=== PATIENT | male | born 1970 | race Caucasian/White ===

== ENCOUNTER 2020-02-07 08:53 | Outpatient (REF) | payer BC, SELFPAY | END 2020-02-07 08:54 | disposition home or self-care (01) | LOC: HO.WFDLDS 08:53 | PROVIDERS: Visit Provider Internal Medicine | DX: Z20.828 Contact with and (suspected) exposure to other viral communicable diseases (principal) | CPT/HCPCS: 87635 ==

== ENCOUNTER 2025-03-16 08:53 | Outpatient (REF) | payer BC, SELFPAY ==
--- OUTSIDE RECORDS SUMMARY | 2025-03-11 23:59 | XMS_ITS | Continuity of Care Document ---
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 Name Role Phone Cristobal hZong MD Primary Care Physician [phone] [place] [facility] [place]): [place]04[place]25 - 03/11/25 [facility] [address] [place] [address] Drive [address] [place], [place] [address] Attending Physician: Melo Ann MD Referring Physician: Kevon Holly Encounter Type: Office Visit Allergies, Adverse Reactions, Alerts No Known Allergies Functional Status Functional Status Assessment Assessment Assessment Component Result Effecti ve Date Disability status [CUBS] I'm Thriving - no identified disability 03/04/25 Do you have serious difficulty walking or climbing stairs No 03/04/25 Because of a physica l, mental, or emotional condition, do you have serious difficulty concentrating, remembering, or making decisions No 03/04/25 Are you blind, or do you have serious difficulty seeing, even when wearing glasses No 03/04/25 Difficulty Reading O r Writing No 03/04/25 Are you deaf, or do you have serious difficulty hearing No 03/04/25 Difficulty communica ting in usual language No 03/04/25 Because of a physica l, mental, or emotional condition, do you have difficulty doing errands alone such as visiting a physician's office or shopping No 03/04/25 Do you need any carina tional assistance or accommodations during your visit No 03/04/25 Do you have difficul ty dressing or bathing No 03/04/25 Medications atorvastatin 40 mg oral tablet 0 Refills, Maintenance, 03/04/25 8:48:00 AM EST, Partial fill upon patient request if the prescription is for a schedule II opioid drug. Start Date: 03/04/25 Status: Ordered Medication Dispense Status: Completed Total Allowed Fills: 1 Fills Dispensed: 0 Cimzia Prefilled Syringe 200 mg/mL subcutaneous kit 0 Refills, Maintenance, 03/04/25 8:47:00 AM EST, Partial fill upon patient request if the prescription is for a schedule II opioid drug. Start Date: 03/04/25 Status: Ordered Medication Dispense Status: Completed Total Allowed Fills: 1 Fills Dispensed: 0 diclofenac sodium 75 mg oral delayed release tablet 0 Refills, Maintenance, 03/04/25 8:48:00 AM EST, Partial fill upon patient request if the prescription is for a schedule II opioid drug. Start Date: 03/04/25 Status: Ordered Medication Dispense Status: Completed Total Allowed Fills: 1 Fills Dispensed: 0 Lisinopril By Mouth, Daily, 0 Refills, Maintenance, 10/23/21 4:24:00 PM EDT, Partial fill upon patient request if the prescription is for a schedule II opioid drug. Start Date: 10/23/21 Status: Ordered Medication Dispense Status: Completed Total Allowed Fills: 1 Fills Dispensed: 0 Problem List Condition Confirmation Course Effective Dates Status Health St atus Informant Obese class II Confirmed Active Vital Signs Most recent to oldest [Reference Range]: 1 Height 178 cm (03/04/25 8:48 AM) Weight 113.9 kg (03/04/25 8:48 AM) Oxygen Saturation [94-100 %] 96 % (03/04/25 8:48 AM) Pulse Rate [55-90 bpm] 71 bpm (03/04/25 8:48 AM) Body Mass Index [18.5-24.99 kg/m2] 35.95 kg/m2 *H* (03/04/25 8:48 AM) Blood Pressure [90-138/55-84 mm Hg] 130/ 88mm Hg (03/04/25 8:48 AM) Respiratory Rate [16-30 br/min] 16 br/mi n (03/04/25 8:48 AM) Mode of Delivery (Oxygen) Room air (03/04/25 8:48 AM) Blood pressure sites Arm, right (03/04/25 8:48 AM) Weight Obtained Via Patient/family state d (03/04/25 8:48 AM) Social History Social History Type Response Smoking Status Never (less than 100 in lifetime) entered on: 03/04/25 Sex Male Sex Representation Male (finding) Consult note * Seth MALIK, Melo Jain: PERFORM Event Display: Consult Authored Date: [id number] Patient: ??LENA MCELROY ? Age:??54 Years?Sex:??Male?:??1970?LOC:??[facility]?? Chief Complaint Ascending aortic aneurysm Reason for Consultation Evaluation of incidentally identified ascending aortic dilation noted on a noncontrast coronary calcium score CT performed on December 30, 2024. History of Present Illness Mr. Mcelroy is a 53-year-old male referred for evaluation of an incidentally identified ascending aortic dilation discovered during a noncontrast coronary calcium score CT performed on December 30, 2024. The study was obtained as part of a cardiovascular risk assessment and noted possible enlargement of the ascending aorta, though it was not optimized for aortic measurement. He has no prior history of aneurysm or connective tissue disease. ?? The patient reports feeling well overall and denies chest pain, dyspnea, dizziness, or syncope. He remains active and participates in routine physical activity without limitation. There is no family history of aortic aneurysm, dissection, or sudden cardiac . His medical history is notable for h ypertension, hyperlipidemia, psoriatic arthritis, obstructive sleep apnea on CPAP, GERD/hiatal hernia, and impaired fasting glucose. He is a nonsmoker and drinks alcohol only occasionally. ?? He presents today for surgical consultation to establish baseline assessment and management recommendations for the ascending aortic dilation. Review of Systems Constitutional: No fever, chills, or unexplained weight loss Cardiovascular: No chest pain, palpitations, syncope, or dyspnea on exertion Respiratory: No cough, wheezing, or shortness of breath Gastrointestinal: No abdominal pain, nausea, vomiting, or changes in bowel habits Musculoskeletal: Chronic arthralgias related to psoriatic arthritis Neurologic: Reports intermittent numbness in feet; no dizziness, weakness, or focal deficits Skin: No rashes or lesions Endocrine: No polydipsia or polyuria Psychiatric: No anxiety or depression symptoms reported Physical Exam Vitals & Measurements HR:??71??(Peripheral)?? RR:??16?? BP:??130/88?? SpO2:??96%?? WT:??113.9??kg?? General: Well-appearing male in no acute distress. Neck: No jugular venous distension or visible pulsations. Respiratory:??No increased work of breathing. Cardiovascular: Heart rate regular by pulse. Abdomen: Non-distended; no visible masses or pulsations. Extremities: No edema, cyanosis, or clubbing noted. Neurologic: Alert and oriented; speech clear; no focal deficits observed. Skin: Warm, intact, without rash or discoloration. Assessment/Plan Mr. Mcelroy is a 53-year-old male with incidentally identified ascending aortic dilation, estimated at4.2???4.4 cm on review of a noncontrast coronary calcium score CT obtained in December 2024. The study was not optimized for precise aortic measurement, and thus these findings should be confirmed with dedicated imaging. He is otherwise asymptomatic, normotensive, and has no known family history of aortic disease or connective tissue disorder. ?? Ascending Aortic Aneurysm (4.2???4.4) cm, incidentally identified): - Discussed the natural history of thoracic aortic aneurysms and the importance of blood pressure and lipid control. - Advised avoidance of heavy lifting, straining, or isometric upper body exercises. - Continue lisinopril for blood pressure management and atorvastatin for lipid control. - No indication for surgical intervention at this time. - Recommend repeat gated, noncontrast CT chest in 6 months for interval assessment. ?? Return to clinic at that time for follow-up and review of imaging. Total Time Spent ??A total of 75 minutes was personally spent on this encounter, including review of prior records and imaging, patient interview and examination, counseling and coordination of care, and documentation of findings and recommendations. Problem List/Past Medical History Hypertension Hyperlipidemia Psoriatic arthritis (on biologic therapy) Obstructive sleep apnea (uses CPAP) Gastroesophageal reflux disease / hiatal hernia Impaired fasting glucose Pancreatic cyst Umbilical hernia Numbness of feet (neuropathy under evaluation) Procedure/Surgical History Colonoscopy ??? November 21, 2023 Right rotator cuff repair ??? 2015 Medications Atorvastatin 40 mg by mouth at bedtime Lisinopril 20 mg by mouth daily Cimzia (certolizumab) 400 mg subcutaneous injection every 4 weeks Gabapentin 300 mg by mouth at bedtime Colesevelam 625 mg ??? 6 tablets daily with meals Allergies NKA Social History Lives at home, independent ADLs Works in construction Tobacco: Never smoked Alcohol: Drinks occasionally Family History No known family history of aortic aneurysm, aortic dissection, or sudden cardiac No known connective tissue disorders in the family Diagnostic Results Noncontrast coronary calcium score CT performed on December 30, 2024, was reviewed personally. While the study was not gated or optimized for aortic evaluation, there is mild dilation of the ascending aorta with an estimated maximum diameter of approximately 4.2???4.4 cm. No evidence of dissection or intramural hematoma is seen on available images. Note * Sharon Huizar: PERFORM Event Display: Patient Education/Instruction Authored Date: [id number] Ambulatory Adult Visit Summary [facility] [address] [place] [address] Drive [address] [place] [address] Name: LENA MCELROY : 1970?? Visit: 03/04/2025 08:45?? Ambulatory Visit Instructions ?? Your Care Team Primary Care Provider Cristobal Zhong MD? This Visit Provider Melo Ann MD Vitals Signs Pulse Rate: 71 bpm Height: 178 cm Respiratory Rate: 16 br/min Weight: 113.9 kg Systolic Blood Pressure: 130 mm Hg Body Mass Index:??35.95 kg/m2??High Diastolic Blood Pressure:??88 mm Hg??High Body surface area: 2.37 Oxygen Saturation: 96 % ?? What to do next Future Orders CT Chest W/O Contrast, Routine, Outside Order (non-[facility]), Reason for Exam: Aneurysm, No Contrast, Once, *Est. 09/01/25 +/- 28 days Medications The list below reflects the information in our records and provided by you today along with any changes made during this visit. Please continue your medications until treatment is completed or stopped by your provider. If this is different from the information you have or there are other questions,please contact the prescribing provider. What How Much When Instructions Unchanged Atorvastatin (atorvastatin 40 mg oral tablet) Unchanged Certolizumab (Cimzia Prefilled Syringe 200 mg/ mL subcutaneous kit) Unchanged Diclofenac (diclofenac sodium 75 mg oral delayed release tablet) Unchanged Lisinopril Oral Daily Medications and Immunizations Administered Medications Given During Visit No medications given during this visit.?? Allergies (NKA means No Known Allergies) NKA Common Emergency Awareness Tips IS IT A STROKE? Act FAST and Check for these signs: FACE Does the face look uneven? ARM Does one arm drift down? SPEECH Does their speech sound strange? TIME Call at any sign of stroke ?? Heart Attack Signs Chest discomfort: Most heart attacks involve discomfort in the center of the chest and lasts more than a few minutes, or goes away and comes back. It can feel like uncomfortable pressure, squeezing, fullness or pain. Discomfort in upper body: Symptoms can include pain or discomfort in one or both arms, back, neck, jaw or stomach. Shortness of breath: With or without discomfort. Other signs: Breaking out in a cold sweat, nausea, or lightheaded. Remember, MINUTES DO MATTER. If you experience any of these heart attack warning signs, call to get immediate medical attention! ?? Smoking can increase your chances of developing chronic health problems and can cause harmful effects to other family members in your house. If you smoke, you are strongly encouraged to quit. Please call [employer] Link at [phone] or [phone] ([phone]) or log in to [email or web address] for referrals to smoking cessation programs. ?? The National Suicide Prevention Hotline is available 18/11 if you or someone you know needs to find a reason to keep living. By calling 0-027-970-[employer] (6202) you'll be connected to a skilled, trained counselor at a crisis center in your area. [facility] Portal You can view and manage your care through the patient portal or by using a health care daniella of your choosing. [employer] is a website that allows you to securely view your medical information including your hospital discharge summary, office visit summaries, medications and follow-up visits. You can also request appointments, renew medications, and request access to your medical information using a health care daniella of your choosing, or just ask a question. You can enroll at [email or web address] or register during your next office visit. [facility], in keeping with [facility] guidance, no longer requires face masks for staff, patientsor visitors in most situations. Similiar to time spent indoors at other locations, there is the chance that you were exposed to repiratory viruses during your time with us (such as flu or COVID-19). If you develop symptoms concerning for a viral respiratory infection, please seek testing (and treatment if indicated) from your medical provider or home test kit. ?? Disclaimer: The information provided is of a general nature and is intended to be used in conjunction with the recommendations and advice of your health care practitioner. Every effort has been made to ensure that the information provided is accurate and complete at the time it is provided to you however, as your needs change, or, as new information becomes available, different or additional instructions may be required. ?? If you have questions, please consult with your primary care provider or pharmacist, as appropriate. This information is not intended to serve as substitution for assessment and evaluation by a qualified health care provider. If you do not have a primary care provider, you may find a [facility] provider by calling [facility] Link at [phone]. Patient Care team information Care Team Personnel Name: Cristobal Zhong MD Position: [facility] Outreach Member Role: PCP Address: [address] [place] [address] - [address] [place] [id number] Telecom: Care Team Related Persons Name: SANCHEZ MCELROY Insurance Providers Guarantor name: LENA MCELROY Health Plan Information #: 1 [facility] Payer Identifier: NA Member Number: [id number] Group Number: [id number] Subscriber Identifier: [id number] Relationship to Subscriber: spouse Coverage Type: NA Coverage Verification Date: NA Telecom: NA Address:
--- NOTE | 2025-03-16 09:00 | EMG_ITS ---
Chief complaint:?Pain in ankles and numbness Reason for referral: R20.2 Paresthesia of skin, bilaterally Referred by:?Sukhdev Graham MD Procedure done: Bilateral lower extremities NCS/EMG Bilateral tibial and peroneal motor studies were performed with F responses and tibial H reflexes. Bilateral superficial peroneal and sural sensory studies were performed and paraspinals were tested with a needle. Findings: Right peroneal motor responses absent. Bilateral tibial motor amplitude source severely diminished with mild slowing of conduction velocity. Distal latencies were mildly prolonged. Left peroneal distal latencies amplitudes and conduction velocities did not reveal any significant abnormality. Left superficial peroneal responses absent. Right superficial peroneal responses falling with a normal range. Sural responses were also falling with a normal range. F responses are mildly delayed an H responses are absent. Paraspinal did not reveal any significant abnormality. 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
== END 2025-03-16 08:54 | disposition home or self-care (01) ==
LOC: HO.NEURO 08:53
PROVIDERS: PCP Internal Medicine; Visit Provider Internal Medicine Rheumatology
DX: R20.2 Paresthesia of skin (principal)
CPT/HCPCS: 95886; 95911

== ENCOUNTER → 2025-03-16 09:00 | Outpatient (BNV) | payer BC, SELFPAY | PROVIDERS: PCP Internal Medicine; Visit Provider Psychiatry & Neurology Neurology | DX: G62.89 Other specified polyneuropathies (principal) | CPT/HCPCS: 95886; 95911 ==